=== PATIENT | female | born 1950 | race Hispanic/Latino ===

== ENCOUNTER 2018-10-27 22:08 | Emergency (ER) | payer MEDICARE ==
[2018-10-27] MEDS ORDERED: ACETAMINOPHEN EXTRA STRENGTH 500 MG TABLET ONE (22:42)
== END 2018-10-28 00:05 | disposition home or self-care (01) ==
LOC: EDH 22:08
DX: S93.491A Sprain of other ligament of right ankle, initial encounter (principal); S93.691A Other sprain of right foot, initial encounter; I10 Essential (primary) hypertension; E78.00 Pure hypercholesterolemia, unspecified; K21.9 Gastro-esophageal reflux disease without esophagitis; Z90.710 Acquired absence of both cervix and uterus; Z90.49 Acquired absence of other specified parts of digestive tract; Z90.11 Acquired absence of right breast and nipple; W20.8XXA Other cause of strike by thrown, projected or falling object, initial encounter; Y93.01 Activity, walking, marching and hiking; Y92.098 Other place in other non-institutional residence as the place of occurrence of the external cause; Y99.8 Other external cause status
CPT/HCPCS: 73610; 73630

== ENCOUNTER → 2019-09-20 | Outpatient (CLI) | payer MEDICARE ==
[~2019-09-20] MED LIST: GADODIAMIDE 10 MMOL/20 ML VIAL IV ONE
== END | disposition home or self-care (01) ==
LOC: RAH 08:59
PROVIDERS: ATTEND Family Medicine
DX: M47.12 Other spondylosis with myelopathy, cervical region (principal); M50.021 Cervical disc disorder at C4-C5 level with myelopathy
CPT/HCPCS: 72156; A9579

== ENCOUNTER → 2020-03-05 | Outpatient (CLI) | payer MEDICARE | END | disposition home or self-care (01) | LOC: RAH 09:11 | PROVIDERS: ATTEND Internal Medicine Gastroenterology | DX: R14.2 Eructation (principal) | CPT/HCPCS: 74240 ==

== ENCOUNTER → 2020-06-22 | Outpatient (CLI) | payer MEDICARE | END | disposition home or self-care (01) | LOC: RAH 11:47 | PROVIDERS: ATTEND Podiatrist Foot & Ankle Surgery | DX: M77.9 Enthesopathy, unspecified (principal) ==

== ENCOUNTER 2023-08-30 12:48 | Emergency (ER) | payer MEDICARE ==
[~2023-08-30] VITALS: Ht 160 cm; Wt 59.0 kg
[2023-08-30 12:58] VITALS: BP 150/83; PULSE 79; RESP 18
[2023-08-30] MEDS ORDERED: CEPH250C2 PO (14:41)
[2023-08-30] MEDS: LIDOCAINE HCL 1% 20 ML VIAL INJ SCH (14:49)
== END 2023-08-30 14:52 | disposition home or self-care (01) ==
LOC: EDH 12:48
DX: S61.211A Laceration without foreign body of left index finger without damage to nail, initial encounter (principal); I10 Essential (primary) hypertension; Z90.49 Acquired absence of other specified parts of digestive tract; Z98.890 Other specified postprocedural states; Z90.710 Acquired absence of both cervix and uterus; W01.0XXA Fall on same level from slipping, tripping and stumbling without subsequent striking against object, initial encounter; Y93.89 Activity, other specified; Y92.89 Other specified places as the place of occurrence of the external cause; Y99.8 Other external cause status
CPT/HCPCS: 12001; 73120

== ENCOUNTER 2024-02-25 08:47 | Day surgery (SDC) | payer MEDICARE ==
[2024-02-23 11:26] LABS: BASOPHILS # (AUTO) 0.03 K/uL (0.00-0.20); BASOPHILS % (AUTO) 0.7 % (0.0-5.0); EOSINOPHILS # (AUTO) 0.07 K/uL (0.00-0.70); EOSINOPHILS % (AUTO) 1.5 % (0.0-8.0); HEMATOCRIT 41.8 % (36-48); IMMATURE GRANULOCYTE ABSOLUTE 0.01 K/uL (0-1); LYMPHOCYTES # (AUTO) 1.3 K/uL (1.0-4.8); LYMPHOCYTES % (AUTO) 28.2 % (21.0-51.0); MEAN CORPUSCULAR HEMOGLOBIN 29.6 pg (27.0-33.0); MEAN CORPUSCULAR HGB CONC 33.5 g/dL (32.0-36.0); MEAN CORPUSCULAR VOLUME 88.4 fL (79-99); MONOCYTES # (AUTO) 0.3 K/uL (0.1-1.0); MONOCYTES % (AUTO) 7.2 % (3.0-13.0); NEUTROPHILS # (AUTO) 2.8 K/uL (1.8-7.7); NEUTROPHILS % (AUTO) 62.2 % (40.0-77.0); PLATELET COUNT (AUTO) 198 K/uL (130-400); RED BLOOD CELL COUNT(AUTO) 4.73 MIL/uL (4.00-5.50); RED CELL DISTRIBUTION WIDTH 11.7 % (11.0-15.5); WHITE BLOOD COUNT (AUTO) 4.6 K/uL (4.8-10.8)
--- NOTE | 2024-02-23 11:29 | EKG ---
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
[2024-02-23 11:34] LABS: CREATININE 0.7 mg/dL (0.5-1.0); POTASSIUM 3.9 mmol/L (3.5-5.1)
--- NOTE | 2024-02-23 11:40 | HMCIMG ---
CHEST 1VW HISTORY: Preop COMPARISON: None FINDINGS: A frontal projection of the chest was obtained. No acute pulmonary infiltrates is seen. The heart is borderline enlarged. There is scoliosis. No evidence of aortic calcification is seen. IMPRESSION: 1. No acute pulmonary infiltrate is seen.
[2024-02-23 11:56] LABS: INR 0.99 (0.85-1.15); PROTHROMBIN TIME 10.7 SEC (9.6-11.6)
[2024-02-23 11:57] LABS: PARTIAL THROMBOPLASTIN TIME 26.4 SEC (26.3-35.5)
[~2024-02-25] VITALS: Ht 160 cm; Wt 59.0 kg
[2024-02-25] VITALS (12 sets, daily range): BP systolic 90–154; BP diastolic 49–86; PULSE 67–93; RESP 12–18; TEMP 97.1–98.2
[~2024-02-25 08:47] MED LIST changes: +ACYC-138 PO; +AMLO-258 PO; -GADODIAMIDE 10 MMOL/20 ML VIAL IV ONE; +PANT40TA54 PO; +ROSU10TA72 PO
[2024-02-25] MEDS ORDERED: 0.9%NACL 1000ML 1,000 ML IV ONE (09:53)
[2024-02-25] MEDS ORDERED: proPOFol 10 MG/ML 20ML VIAL IV ONE ×3 (11:12→12:00)
[2024-02-25] MEDS ORDERED: LIDOCAINE HCL 1% 20 ML VIAL ONE (11:13)
== END 2024-02-25 13:35 | disposition home or self-care (01) ==
LOC: ENDO 08:47 → DAH 08:47 → ENDO 13:35
PROVIDERS: ATTEND Student in an Organized Health Care Education/Training Program
DX: Z12.11 Encounter for screening for malignant neoplasm of colon (principal); K29.50 Unspecified chronic gastritis without bleeding; D12.5 Benign neoplasm of sigmoid colon; K21.9 Gastro-esophageal reflux disease without esophagitis; K25.9 Gastric ulcer, unspecified as acute or chronic, without hemorrhage or perforation; I10 Essential (primary) hypertension; K30 Functional dyspepsia; K44.9 Diaphragmatic hernia without obstruction or gangrene; K64.4 Residual hemorrhoidal skin tags; Z79.899 Other long term (current) drug therapy
CPT/HCPCS: 71045; 80048; 85025; 85610; 85730; 36415; 93005; 45385; 43239; 88305; 88312; J3010; J7030 ×2; J2704 ×3; A4620; A4215 ×2; A4223; A4222; A4221; A4663; A4606; J3490

== ENCOUNTER 2024-06-09 08:50 | Day surgery (SDC) | payer MEDICARE ==
[2024-06-09] VITALS (10 sets, daily range): BP systolic 112–133; BP diastolic 58–76; PULSE 63–74; RESP 14–16; TEMP 97.1–98.6
[~2024-06-09] VITALS: Ht 160 cm; Wt 59.4 kg
[2024-06-09] MEDS ORDERED: AMLO-257 PO (10:34)
[2024-06-09] MEDS ORDERED: ROSU5TAB51 PO (10:34)
[2024-06-09] MEDS: 0.9%NACL 1000ML 1,000 ML IV ONE (10:45)
[2024-06-09] MEDS ORDERED: proPOFol 10 MG/ML 20ML VIAL IV ONE (12:30)
--- NOTE | 2024-06-09 13:46 | NUR ---
Full and complete Discharge Instructions given to Patient and Family both verbally and in writing.. All questions answered.Voiced understanding to GI procedure precautions and Follow Up. PIV removed with catheter tip intact. Denies c/o pain or discomfort. W/C to POV with Family to home.
== END 2024-06-09 13:45 | disposition home or self-care (01) ==
LOC: ENDO 08:50 → DAH 08:50 → ENDO 13:45
PROVIDERS: ATTEND Student in an Organized Health Care Education/Training Program
DX: K21.9 Gastro-esophageal reflux disease without esophagitis (principal); K29.50 Unspecified chronic gastritis without bleeding; I10 Essential (primary) hypertension; E66.01 Morbid (severe) obesity due to excess calories; Z79.899 Other long term (current) drug therapy
CPT/HCPCS: 43235; J7030 ×2; J2704; A4620; A4215 ×2; A4223; A4657; A4222; A4221; A4663; A4606; J3490